=== PATIENT | female | born 1950 | race Caucasian/White ===

== ENCOUNTER → 2016-12-25 | Outpatient (CLI) | payer OTHER, BC ==
[~2016-12-25] VITALS: Ht 157.5 cm; Wt 64.8 kg
[~2016-12-25] MED LIST: ASPIRIN81 M2 PO; IBUPROFEN200 M1 PO; PLAQUENIL200 MG PO; PRILOSEC20 MG PO; PROTOPIC 0.1% O30 GM PO; PROZAC40 MG PO; QVAR 40 MCG IN7.3 GM IH; TEMOVATE 0.05%15 G1 TP; TENORETIC 501 TABLET PO; VENTOLIN HFA18 GM IH; VITAMIN B-6100 MG PO; VITAMIN D2000 UNI1 PO; XANAX2 MG PO; ZOCOR40 MG PO
== END | disposition home or self-care (01) ==
LOC: AMB 12:27
DX: Z12.11 Encounter for screening for malignant neoplasm of colon (principal); D12.2 Benign neoplasm of ascending colon; D12.3 Benign neoplasm of transverse colon; D12.5 Benign neoplasm of sigmoid colon; K64.8 Other hemorrhoids; I10 Essential (primary) hypertension; E78.00 Pure hypercholesterolemia, unspecified; J45.20 Mild intermittent asthma, uncomplicated; F41.8 Other specified anxiety disorders; Z87.891 Personal history of nicotine dependence; Z82.5 Family history of asthma and other chronic lower respiratory diseases; Z82.49 Family history of ischemic heart disease and other diseases of the circulatory system; Z80.1 Family history of malignant neoplasm of trachea, bronchus and lung; Z82.61 Family history of arthritis; Z79.82 Long term (current) use of aspirin; Z79.899 Other long term (current) drug therapy; K21.9 Gastro-esophageal reflux disease without esophagitis
CPT/HCPCS: 88305; 93005